=== PATIENT | male | born 1995 | race American Indian/Alaskan Native ===

== ENCOUNTER 2016-06-10 18:39 | Emergency (ER) | payer MEDICAID ==
--- NOTE | 2016-06-10 19:29 | Emergency Department Report ---
HPI - General Chief Complaint: Pain General Time Seen by Provider: 06/10/16 19:10 - HPI HPI: Room 23 The patient is a 20-year-old male presenting with a chief complaint of right facial swelling. The patient states he awakened this morning to notice swelling of the right cheek. Patient denies any preceding trauma. Patient initially denies pain fever or dental pain. Patient denies any previous episodes. The patient states several weeks ago he had an itchy throat but has since resolved. The patient states he's been on lisinopril since January 2016 Location: Right cheek Duration: Constant since this morning Quality: Painless Severity: Mild Modifying factors: Unknown Context: [see above] Mode of transportation: Unknown. Visitor at bedside ED Past Medical Hx - Past Medical History Previous Medical History?: Yes Hx Congestive Heart Failure: Yes Hx Psychiatric Treatment: Yes (schizophrenia, bipolar, depression) Additional medical history: Low Ef of 24%. Use external defibrillator - Surgical History Past Surgical History?: Yes Additional Surgical History: hernia repair - Family History Family history: no significant - Social History Smoking Status: Never Smoker - Medications Home Medications: Home Medications Medication Instructions Recorded Confirmed Last Taken Type Amoxicillin/K Clav Tab [Augmentin 1 tab PO Q12HR #20 tab 06/10/16 Unknown Rx 875 mg] Divalproex ER [DepaKOTE ER] 1,000 mg PO QDAY 06/10/16 06/10/16 06/09/16 History Lisinopril [Zestril TAB] 10 mg PO QDAY 06/10/16 06/10/16 06/10/16 History Metoprolol [Lopressor TAB] 75 mg PO DAILY 06/10/16 06/10/16 06/09/16 History Quetiapine Fumarate [SEROquel XR] 200 mg PO DAILY 06/10/16 06/10/16 06/09/16 History traMADol [Ultram] 50 mg PO Q6HR PRN #14 tablet 06/10/16 Unknown Rx ED Review of Systems ROS: Stated complaint: RT SWOLLEN CHEEK Other details as noted in HPI Comment: All other systems reviewed and negative Constitutional: denies: chills, fever Eyes: denies: eye pain, eye discharge, vision change ENT: denies: ear pain, throat pain Respiratory: denies: cough, shortness of breath, wheezing Cardiovascular: denies: chest pain, palpitations Endocrine: no symptoms reported Gastrointestinal: denies: abdominal pain, nausea, diarrhea Genitourinary: denies: urgency, dysuria Musculoskeletal: denies: back pain, joint swelling, arthralgia Skin: other (right cheek/facial swelling) Neurological: denies: headache, weakness, paresthesias Psychiatric: denies: anxiety, depression Hematological/Lymphatic: denies: easy bleeding, easy bruising Physical Exam - Physical Exam Vital Signs: Vital Signs 06/10/16 06/10/16 18:48 19:13 Temperature 98.6 F Pulse Rate 78 74 Respiratory 20 16 Rate Blood Pressure 118/64 Blood Pressure 105/63 [Left] O2 Sat by Pulse 100 100 Oximetry Physical Exam: GENERAL: The patient is well-developed well-nourished male sitting on stretcher not appearing to be in acute distress. [] HEENT: Normocephalic. Atraumatic. Extraocular motions are intact. Patient has moist mucous membranes. Soft tissue swelling of the right cheek. There is no area of fluctuance palpated. No induration. Mild tenderness to palpation of the buccal mucosa. No buccal erythema seen. Mild discomfort to palpation of teeth 1 through 3 NECK: Supple. Trachea midline. No stridor CHEST/LUNGS: Clear to auscultation. There is no respiratory distress noted. HEART/CARDIOVASCULAR: Regular. There is no tachycardia. There is no gallop rub or murmur. ABDOMEN:There is no abdominal distention. SKIN: There is no rash. There is no edema. There is no diaphoresis. NEURO: The patient is awake, alert, and oriented. The patient is cooperative. The patient has normal speech MUSCULOSKELETAL: There is no evidence of acute injury. ED Course Vital Signs 06/10/16 06/10/16 18:48 19:13 Temperature 98.6 F Pulse Rate 78 74 Respiratory 20 16 Rate Blood Pressure 118/64 Blood Pressure 105/63 [Left] O2 Sat by Pulse 100 100 Oximetry ED Medical Decision Making - Lab Data Result diagrams: 06/10/16 19:35 06/10/16 19:35 Laboratory Tests 06/10/16 06/10/16 19:35 19:35 WBC 9.4 RBC 4.87 Hgb 13.4 Hct 41.4 MCV 85 MCH 28 MCHC 32 RDW 14.5 Plt Count 155 Lymph % (Auto) 18.5 [place] % (Auto) 12.7 H Eos % (Auto) 1.4 Baso % (Auto) 0.3 Lymph # 1.8 [place] # 1.2 H Eos # 0.1 Baso # 0.0 Seg Neutrophils % 67.1 Seg Neutrophils # 6.3 Sodium 145 Potassium 4.4 Chloride 102.8 Carbon Dioxide 30 Anion Gap 17 BUN 15 Creatinine 1.0 Estimated GFR > 60 BUN/Creatinine Ratio 15.00 Glucose 75 Calcium 9.2 - Radiology Data Radiology results: report reviewed (CT neck), image reviewed (CT neck) CT neck (read by radiologist)-3 mm. Abscess is suspect associated with a right maxillary premolar tooth root. This likely has cortical breakthrough superficially. Edema in the right infraorbital region of the face could be due to facial cellulitis. No soft tissue abscess is seen. - Differential Diagnosis angioedema, sialolithiasis, parotitis, dental abscess Critical care attestation.: If time is entered above; I have spent that time in minutes in the direct care of this critically ill patient, excluding procedure time. ED Disposition Clinical Impression: Dental abscess, Facial swelling Disposition: DISCHARGED TO HOME OR SELFCARE Is pt being admited?: No Does the pt Need Aspirin: No Condition: Stable Instructions: Dental Abscess (ED) Additional Instructions: Return to the emergency department immediately should you develop worsening symptoms, fever, inability to tolerate food or liquid or any other concerns. Prescriptions: Amoxicillin/K Clav Tab [Augmentin 875 mg] 1 tab PO Q12HR #20 tab traMADol [Ultram] 50 mg PO Q6HR PRN #14 tablet PRN Reason: Pain Referrals: PRIMARY CARE,MD [Primary Care Provider] - 3-5 Days [facility] [Outside] - 3-5 Days your dentist, your dentist [Other] - 3-5 Days Time of Disposition: 21:59
[2016-06-10 20:01] LABS: Basophils % (Auto) 0.3 % (0.0-1.8); Eosinophils % (Auto) 1.4 % (0.0-4.3); Hematocrit 41.4 % (35.5-45.6); Hemoglobin 13.4 gm/dl (11.8-15.2); Mean Corpuscular HGB Conc 32 % (32-34); Mean Corpuscular Hemoglobin 28 pg (28-32); Mean Corpuscular Volume 85 fl (84-94); Platelet Count 155 K/mm3 (140-440); Red Blood Count 4.87 M/mm3 (3.65-5.03); Red Cell Distribution Width 14.5 % (13.2-15.2); White Blood Count 9.4 K/mm3 (4.5-11.0)
[2016-06-10 20:07] VITALS: BP 108/63
[2016-06-10 20:09] LABS: Anion Gap 17 mmol/L; Blood Urea Nitrogen 15 mg/dL (9-20); Calcium 9.2 mg/dL (8.4-10.2); Carbon Dioxide 30 mmol/L (22-30); Chloride 102.8 mmol/L (98-107); Glucose 75 mg/dL (75-100); Potassium 4.4 mmol/L (3.6-5.0); Sodium 145 mmol/L (137-145)
[2016-06-10] MEDS ORDERED: NACL ONE (20:13)
--- NOTE | 2016-06-10 21:36 | Cat Scan Report ---
FINAL REPORT PROCEDURE: CT NECK W CON TECHNIQUE: Computerized axial tomography of the soft tissue neck was performed following the IV injection of iodinated nonionic contrast. HISTORY: right facial swelling COMPARISON: No prior studies are available for comparison. FINDINGS: Mild changes of chronic sinusitis are seen in the right maxillary sinus. No air-fluid levels are seen in the paranasal sinuses or mastoid air cells. Globes appear symmetric. No postseptal swelling is seen. There is edema in the right infraorbital region of the face. There is mild periapical lucency adjacent to right maxillary premolar. It measures 3 millimeters in size and has likely cortical breakthrough anteriorly suggesting a periapical abscess as the source for the suspected facial cellulitis. No soft tissue abscess is seen. There is no tonsillar hypertrophy. Parapharyngeal fat planes are preserved. No retropharyngeal edema is seen. No abnormalities are seen in the glottis. Thyroid gland appears normal. Mild likely reactive lymph nodes are seen in the neck. IMPRESSION: 3 millimeter periapical abscess is suspected associated with a right maxillary premolar tooth root. This likely has cortical breakthrough superficially. Edema in the right infraorbital region of the face could be due to facial cellulitis. No soft tissue abscess is seen.
== END 2016-06-10 22:16 | disposition home or self-care (01) ==
LOC: ED 18:39
DX: K04.7 Periapical abscess without sinus (principal); F20.9 Schizophrenia, unspecified; F31.9 Bipolar disorder, unspecified; I50.9 Heart failure, unspecified; Z79.899 Other long term (current) drug therapy; Z88.8 Allergy status to other drugs, medicaments and biological substances; Z95.810 Presence of automatic (implantable) cardiac defibrillator
CPT/HCPCS: 36415; 70491; 80048; 85025; 99284; Q9967